=== PATIENT | female | born 1990 | race Caucasian/White ===

== ENCOUNTER → 2024-01-13 17:43 | Outpatient (REF) | payer OTHER, SELFPAY | LOC: RAD 17:43 | PROVIDERS: ATTENDING PHYSICIAN Obstetrics & Gynecology; FAMILY PHYSICIAN Family Medicine | DX: R22.41 Localized swelling, mass and lump, right lower limb (principal) | CPT/HCPCS: 93971 ==

== ENCOUNTER 2024-01-26 11:32 | Inpatient (IN) | payer OTHER, SELFPAY ==
[2024-01-26 11:52] VITALS: BP 111/77; BMI 30.1
[2024-01-26 12:39] LABS: % Basophils 0.4 % (0-2); % Immature Granulocytes 0.8 % (0-0.5); % Monocytes 5.3 % (1.7-9.3); % Neutrophils 69.5 % (42.2-75.2); Absolute Eosinophils 0.1 10^3/uL (0-0.7); Absolute Immature Granulocytes 0.1 10^3/uL (0-0.05); Absolute Lymphocytes 1.7 10^3/uL (1.2-3.4); Absolute Monocytes 0.4 10^3/uL (0.1-0.6); Hematocrit 32.7 % (37.0-47.0); Mean Corp Hgb Conc. 33.6 g/dL (33.0-37.0); Mean Corpuscular Hgb 27.2 pg (27.0-31.0); Mean Corpuscular Volume 80.7 fL (81.0-99.0); Nucleated Red Blood Cells % 0 %; Red Blood Cell Count 4.05 10^6/uL (4.20-5.40); Red Cell Dist. Width 15.7 % (11.5-14.5); White Blood Cell Count 7.2 10^3/uL (4.8-10.8)
[2024-01-26] MEDS: LR 1000 IV (14:21)
[2024-01-26] MEDS: PITOCIN 30 UNITS/NSS 500 ML IV (14:22)
[2024-01-27] MEDS: FENTANYL/BUPIVACAINE 100 EPIDURAL (01:29)
[2024-01-27] MEDS: SUBLIMAZE 100 MCG EPIDURAL (01:29)
[2024-01-27] MEDS: LR 1000 IV (06:18)
[2024-01-27] MEDS: ZYRTEC PO (10:52)
[2024-01-27] MEDS: PRENATAL PLUS PO (10:52)
[2024-01-27] MEDS: PHENERGAN 51 MG IV (17:27)
[2024-01-27] MEDS: ZOFRAN 4 MG IV (21:13)
[2024-01-27] MEDS: TYLENOL 1000 MG PO (23:31)
[2024-01-27] MEDS: ANCEF 10 IV (23:32)
[2024-01-27] MEDS: BICITRA 30 ML PO (23:32)
[2024-01-28 00:13] LABS: Cord ABG Comment CORD BLOOD
[2024-01-28 00:14] LABS: B.E. Cord ABG -5.1 mMOL/L; HCO3 Cord ABG 21.2 mmol/L; PCO2 Cord ABG 43 mmHg; PO2 Cord ABG 22 mmHg
[2024-01-28 00:18] LABS: B.E. Cord ABG -7.3 mMOL/L; O2 Saturation % Cord ABG 21.9 %; PCO2 Cord ABG 59 mmHg; PO2 Cord ABG 14 mmHg; pH Cord ABG 7.18
[2024-01-28] MEDS: MORPHINE SULFATE 2 MG IV ×2 (02:14→06:44)
[2024-01-28] MEDS: TORADOL 15 MG IV ×3 (05:44→17:45)
[2024-01-28 06:52] LABS: Hematocrit 34.4 % (37.0-47.0); Hemoglobin 11.4 g/dL (12.0-16.0); Mean Corp Hgb Conc. 33.1 g/dL (33.0-37.0); Mean Corpuscular Volume 81.5 fL (81.0-99.0); Mean Platelet Volume 13.5 fL (7.4-10.4); Platelet Count 153 10^3/uL (130-400); Red Blood Cell Count 4.22 10^6/uL (4.20-5.40); Red Cell Dist. Width 15.9 % (11.5-14.5); White Blood Cell Count 22.2 10^3/uL (4.8-10.8)
--- NOTE | 2024-01-28 07:51 | W.PN.ANS.POP ---
Anesthesia Post Operative
- Anesthesia Post Op Note
Vital Signs Stable-See Nursing Note: Yes
Airway Patent: Yes
Adequate Pain Control: Yes
Change in Mental Status: No
Current Postoperative Nausea & Vomiting: No
Anesthesia Complications: No
General Anesthetic Recall: No
Unplanned Admission: No
Post Op Hydration Adequate: Yes
[2024-01-28] MEDS: PRENATAL PLUS 1 TABLET PO (08:12)
[2024-01-28] MEDS: ZYRTEC 10 MG PO (08:12)
[2024-01-28] MEDS: PERCOCET 5/325 1 TABLET PO (16:16)
[2024-01-28] MEDS: FLUSH (NSS) 1 FLUSH IV (17:48)
[2024-01-29] MEDS: TORADOL 15 MG IV (00:11)
[2024-01-29] MEDS: TYLENOL 650 MG PO ×4 (03:48→22:14)
[2024-01-29] MEDS: ZYRTEC 10 MG PO (07:53)
[2024-01-29] MEDS: SENOKOT-S 1 TABLET PO (07:53)
[2024-01-29] MEDS: MOTRIN 600 MG PO ×3 (07:53→22:14)
[2024-01-29] MEDS: PRENATAL PLUS 1 TABLET PO (07:53)
[2024-01-29] MEDS: MYLICON 80 MG PO ×2 (07:57→21:24)
[2024-01-29 16:30] LABS: Syphilis/T. pallidum Ab Reflex Negative (Negative)
[2024-01-30] MEDS: MOTRIN 600 MG PO ×2 (04:32→10:50)
[2024-01-30] MEDS: TYLENOL 650 MG PO ×2 (04:32→10:50)
[2024-01-30] MEDS: PRENATAL PLUS 1 TABLET PO (08:24)
[2024-01-30] MEDS: SENOKOT-S 1 TABLET PO (08:24)
[2024-01-30] MEDS: ZYRTEC 10 MG PO (08:24)
--- NOTE | 2024-01-30 08:41 | W.DS.TRANS ---
DC Summary - Heel Cutter
-
Discharge Instructions:
Discharge Diagnosis/Procedures cs
Instructions:
Stand-Alone Forms: LDRP Delivery
Changes to Home Medications: No
Discharge Medications:
[facility]
cetirizine 10 mg tablet (Zyrtec) 10 mg PO DAILY Allergies 01/26/24
prenat.vits,ashley,wbp-titd-swhje 1 tab PO DAILY Supplement 01/26/24
ibuprofen 600 mg tablet 600 mg PO Q6HPRN PRN cramps #90 tabs 01/30/24
oxycodone-acetaminophen 5 mg-325 mg tablet 1 tab PO Q4HPRN PRN moderate pain #5 tabs 01/30/24
Home Medication Changes
Pending Results: No
Total time spent discharging patient (in min): 20
== END 2024-01-30 14:46 | disposition home or self-care (01) | DRG 788 ==
LOC: LDRP 11:32
PROVIDERS: Obstetrics & Gynecology; ADMITTING PHYSICIAN Obstetrics & Gynecology
PROC: 10D00Z1 Extraction of Products of Conception, Low, Open Approach (ICD-10-PCS; 2024-01-28)
DX: O42.02 Full-term premature rupture of membranes, onset of labor within 24 hours of rupture (principal); O76 Abnormality in fetal heart rate and rhythm complicating labor and delivery; Z3A.39 39 weeks gestation of pregnancy; Z37.0 Single live birth; O69.81X0 Labor and delivery complicated by cord around neck, without compression, not applicable or unspecified; O69.2XX0 Labor and delivery complicated by other cord entanglement, with compression, not applicable or unspecified
CPT/HCPCS: 88307; 82803; 85025; 85027; 86780; 86850; 86900; 86901

== ENCOUNTER 2024-04-29 13:53 | Outpatient (RCR) | payer OTHER, SELFPAY | END 2024-04-29 23:59 | disposition home or self-care (01) | LOC: RPT 13:53 | PROVIDERS: ATTENDING PHYSICIAN Obstetrics & Gynecology; FAMILY PHYSICIAN Family Medicine | DX: R10.2 Pelvic and perineal pain (principal); M62.89 Other specified disorders of muscle; Z73.6 Limitation of activities due to disability | CPT/HCPCS: 97140; 97162; 97530 ==

== ENCOUNTER 2024-05-26 15:21 | Outpatient (RCR) | payer OTHER, SELFPAY | END 2024-05-26 23:59 | disposition home or self-care (01) | LOC: RPT 15:21 | PROVIDERS: ATTENDING PHYSICIAN Obstetrics & Gynecology; FAMILY PHYSICIAN Family Medicine | DX: R10.2 Pelvic and perineal pain (principal); M62.89 Other specified disorders of muscle; Z73.6 Limitation of activities due to disability | CPT/HCPCS: 97110; 97140; 97530 ==

== ENCOUNTER 2024-06-24 15:04 | Outpatient (RCR) | payer OTHER, SELFPAY | END 2024-06-24 23:59 | disposition home or self-care (01) | LOC: RPT 15:04 | PROVIDERS: ATTENDING PHYSICIAN Obstetrics & Gynecology; FAMILY PHYSICIAN Family Medicine | DX: R10.2 Pelvic and perineal pain (principal); M62.89 Other specified disorders of muscle; Z73.6 Limitation of activities due to disability | CPT/HCPCS: 97110; 97140; 97530 ==

== ENCOUNTER 2024-07-28 12:15 | Outpatient (RCR) | payer OTHER, SELFPAY | END 2024-07-28 23:59 | disposition home or self-care (01) | LOC: RPT 12:15 | PROVIDERS: ATTENDING PHYSICIAN Obstetrics & Gynecology; FAMILY PHYSICIAN Family Medicine | DX: R10.2 Pelvic and perineal pain (principal); M62.89 Other specified disorders of muscle; Z73.6 Limitation of activities due to disability | CPT/HCPCS: 97110; 97140; 97530 ==

== ENCOUNTER 2024-08-25 16:42 | Outpatient (RCR) | payer OTHER, SELFPAY | END 2024-08-25 23:59 | disposition home or self-care (01) | LOC: RPT 16:42 | PROVIDERS: ATTENDING PHYSICIAN Obstetrics & Gynecology; FAMILY PHYSICIAN Family Medicine | DX: R10.2 Pelvic and perineal pain (principal); M62.89 Other specified disorders of muscle; Z73.6 Limitation of activities due to disability | CPT/HCPCS: 97110; 97140; 97162; 97530 ==

== ENCOUNTER 2024-09-21 19:14 | Outpatient (RCR) | payer OTHER, SELFPAY | END 2024-09-21 23:59 | disposition home or self-care (01) | LOC: RPT 19:14 | PROVIDERS: ATTENDING PHYSICIAN Obstetrics & Gynecology; FAMILY PHYSICIAN Family Medicine | DX: R10.2 Pelvic and perineal pain (principal); M62.89 Other specified disorders of muscle; Z73.6 Limitation of activities due to disability | CPT/HCPCS: 97110; 97140; 97530 ==

== ENCOUNTER 2024-10-06 17:16 | Outpatient (RCR) | payer OTHER, SELFPAY | END 2024-10-07 12:09 | disposition home or self-care (01) | LOC: RPT 17:16 | PROVIDERS: ATTENDING PHYSICIAN Obstetrics & Gynecology; FAMILY PHYSICIAN Family Medicine | DX: R10.2 Pelvic and perineal pain (principal); M62.89 Other specified disorders of muscle; Z73.6 Limitation of activities due to disability | CPT/HCPCS: 97110; 97530 ==